=== PATIENT | male | born 1975 | race Caucasian/White ===

== ENCOUNTER 2020-04-24 17:12 | Emergency (ER) | payer MEDICAID ==
[~2020-04-24] VITALS: Ht 182.9 cm; Wt 72.6 kg
[~2020-04-24 17:12] MED LIST: LITHIUM CARBONATE PO; TRAM50TA2 PO
--- NOTE | 2020-04-24 17:17 | NUR ---
pt bib rescue co meth use, bizzarre behavior, hyper verbal and restless. on arrival, pt says that he needs something to calm him down, pt moving all extremeties restlessly.
[2020-04-24] MEDS ORDERED: LORAZEPAM 2 MG/1 ML VIAL IM ONE (17:30)
[2020-04-24] MEDS ORDERED: OLANZAPINE 10 MG VIAL IM ONE ×2 (17:30→17:44)
[2020-04-24] MEDS ORDERED: LORAZEPAM 2 MG/1 ML VIAL ONE (17:44)
[2020-04-24 17:57] LABS: *BLOOD, URINE NEGATIVE (NEGATIVE); *COLOR,URINE YELLOW (YELLOW); *KETONES,URINE 2+ (NEGATIVE); *UROBILINOGEN,URINE 0.2 E.U./dl (NORMAL); LEUKOCYTE ESTERASE ,URINE NEGATIVE (NEGATIVE); NITRITE, URINE NEGATIVE (NEGATIVE); PH,URINE 5.5 (5.0-8.0); UGLUCOSE NEGATIVE (NEGATIVE)
[2020-04-24 18:01] LABS: *BILIRUBIN,URIN 1+ (NEGATIVE)
[2020-04-24 18:11] LABS: BASOPHILS % (AUTO) 0.5 % (0.0-2.0); EOSINOPHILS % (AUTO) 0.2 % (0.0-7.0); HEMATOCRIT 35.4 % (36.7-47.1); HEMOGLOBIN 12.3 g/dL (12.5-16.3); LYMPHOCYTES # (AUTO) 0.8 K/uL (20.0-40.0); LYMPHOCYTES % (AUTO) 10.8 % (20.5-51.5); MEAN CORPUSCULAR HEMOGLOBIN 30.5 uug (23.8-33.4); MEAN CORPUSCULAR HGB CONC 35 g/dL (32.5-36.3); MEAN CORPUSCULAR VOLUME 88.2 fL (73.0-96.2); MONOCYTES # (AUTO) 0.5 K/uL (2.0-10.0); MONOCYTES % (AUTO) 6.5 % (0.0-11.0); NEUTROPHILS # (AUTO) 6.1 K/uL (1.8-8.9); PLATELET COUNT (AUTO) 274 K/uL (152-348); RED BLOOD CELL COUNT(AUTO) 4.01 MIL/uL (4.06-5.63); WHITE BLOOD COUNT (AUTO) 7.4 K/uL (3.6-10.2)
[2020-04-24 18:12] LABS: *AMPHETAMINE, URINE POSITIVE (NEGATIVE); *CANNABINOID, URINE NEGATIVE (NEGATIVE); *COCCAINE, URINE NEGATIVE (NEGATIVE); *OPIATE, URINE NEGATIVE (NEGATIVE); *PHENCYCLIDINE SCREEN,URINE NEGATIVE (NEGATIVE)
[2020-04-24 18:16] LABS: BACTERIA,URINE NONE SEEN /HPF (NONE SEEN); SQUAMOUS EPITHELIAL CELL,UR NONE SEEN /HPF (NONE SEEN)
[2020-04-24 18:17] LABS: *CLARITY,URINE CLEAR (CLEAR)
[2020-04-24 18:20] LABS: CARBON DIOXIDE 22 mmol/L (21-32); CHLORIDE 98 mmol/L (98-107); CREATININE 1.1 mg/dL (0.6-1.3); GLUCOSE 92 mg/dL (74-106); UREA NITROGEN, BLOOD 14 mg/dL (7-18)
[2020-04-24 18:29] LABS: ETHANOL < 3 MG/DL (0-0)
[2020-04-24 18:32] LABS: ALANINE AMINOTRANSFERASE 53 U/L (16-63); ALKALINE PHOSPHATASE 51 U/L (50-136); ASPARTATE AMINOTRANSFERASE 93 U/L (15-37); BILIRUBIN,DIRECT 0.4 mg/dL (0.0-0.2); BILIRUBIN,TOTAL 1.5 mg/dL (0.2-1.0); TOTAL PROTEIN, SERUM 7.1 g/dL (6.4-8.2)
--- NOTE | 2020-04-24 18:43 | NUR ---
pt resting, no sign of distress, on monitor, ra sat 97%, hr 98.
--- NOTE | 2020-04-24 21:30 | NUR ---
Pt resting comfortably in room. Pt arouses to voice, AxO x2-3. Pt able to move upper and lower extremities. VSS, no acute distress noted. Continue to monitor.
--- NOTE | 2020-04-25 03:40 | NUR ---
Pt easily arousable to voice, AxO x3-4, able to make needs known. Denies pain, SOB or n/v. No acute distress noted. Urinal at bedside. Urine output 500 cc at this time. VSS. Safety maintained. Continue to monitor.
--- NOTE | 2020-04-25 08:00 | NUR ---
called Jitendra, foster care social worker and left a message.
--- NOTE | 2020-04-25 08:23 | NUR ---
pt had 2 hospital tray with good apetite. pt says that he feels much better compared to yesterday.
--- NOTE | 2020-04-25 08:24 | NUR ---
new clothing and hygiene products provided for pt.
--- NOTE | 2020-04-25 08:40 | NUR ---
pt says that he has family support including brother and cousin who are willing to help if he decides to take care of his situation. pt says that he needs to clean up his acts and be responsible to his family.
[2020-04-25] MEDS ORDERED: ACETAMINOPHEN ES 500 MG TABLET PO ONE (09:00)
[2020-04-25] MEDS ORDERED: ACETAMINOPHEN ES 500 MG TABLET ONE (09:00)
--- NOTE | 2020-04-25 09:12 | NUR ---
pt decided to leave and not wait for social media marketer. community resource package provided for pt. pt walks in steady gait. pt was appreciative of the care recieved here. Addendum: 04/25/20 at 0918 by DON pt said that he wants to check into a rehab fascility at [place], where he has a better chance for recovery. a copy of labs provided for pt for medical clearance in case pt needs it.
--- NOTE | 2020-04-25 09:16 | NUR ---
Patient given written and verbal discharge instructions. Patient verbalizes understanding of instructions. Patient is ambulatory with steady gait. Refuses to wait for medical social worker. Patient given list of available shelters/community resources in surrounding area. pt axo x4. pt denies ant harm to self or others. pt has an intent and plan to get better.
[2020-04-25 09:17] VITALS: BP 109/67
== END 2020-04-25 09:20 | disposition home or self-care (01) ==
LOC: ER 17:15
DX: T43.621A Poisoning by amphetamines, accidental (unintentional), initial encounter (principal); G92 Toxic encephalopathy; F15.10 Other stimulant abuse, uncomplicated; Y92.89 Other specified places as the place of occurrence of the external cause; Z59.0 Homelessness; F31.9 Bipolar disorder, unspecified; Z79.899 Other long term (current) drug therapy; Z82.49 Family history of ischemic heart disease and other diseases of the circulatory system
CPT/HCPCS: 36415; 80048; 80076; 80307; 80320; 81001; 82550; 85025; 96372 ×2; 99284; J2060; A4663; A9150; G0480; J2358

== ENCOUNTER 2021-10-16 01:36 | Emergency (ER) | payer SELFPAY ==
[~2021-10-16] VITALS: Ht 182.9 cm; Wt 77.1 kg
--- NOTE | 2021-10-16 02:55 | NUR ---
DR: SHELL AT B/S FOR MSE ,EXAMINED PATIENT.
[2021-10-16] MEDS ORDERED: ACETAMINOPHEN/CODEINE 300-30 MG TABLET PO ONE (03:15)
[2021-10-16] MEDS ORDERED: VANCOMYCIN 1G/D5W 200 ML PIGGYBACK IV ONE (03:15)
[2021-10-16] MEDS ORDERED: VANCOMYCIN IV 200 ML ONE (03:18)
[2021-10-16 03:33] LABS: HEMATOCRIT 40.1 % (36.7-47.1); MEAN CORPUSCULAR HEMOGLOBIN 29.7 uug (23.8-33.4); PLATELET COUNT (AUTO) 243 K/uL (152-348)
--- NOTE | 2021-10-16 03:35 | NUR ---
PATIENT YELLING AND SCREAMING VERBALIZING AND COMPLAINING OF ITCHINESS SCRATHING THE BACK OF HIS NECK AND WANTS TO STOP THE ANTIBIOTIC HE DONT WANT IT AND HE WANTS TO SIGNED AMA [facility] .
--- NOTE | 2021-10-16 03:35 | NUR ---
REMOVED H/L .APPLIED GAUZE AND SECURE WITH TAPE .
[2021-10-16] MEDS ORDERED: SULF1TAB48 PO (03:39)
[2021-10-16 03:41] LABS: CREATININE 1.1 mg/dL (0.6-1.3)
[2021-10-16 03:47] LABS: BILIRUBIN,DIRECT 0.1 mg/dL (0.0-0.2); BILIRUBIN,TOTAL 0.7 mg/dL (0.2-1.0); TOTAL PROTEIN, SERUM 6.8 g/dL (6.4-8.2)
--- NOTE | 2021-10-16 03:47 | NUR ---
Patient does not wish to proceed with medical care recommended by Dr. GOFF MADE AWARE AND SPOKED WITH PATIENT AT B/S. Patient given information related to possible complications, up to and including , which could occur as a result of leaving the hospital at this time. Patient verbalizes understanding of risks involved due to leaving against medical advice. Patient has signed AMA form.
== END 2021-10-16 03:52 | disposition left against medical advice (07) ==
LOC: MERGE 01:36 → ER 01:36
DX: S81.812A Laceration without foreign body, left lower leg, initial encounter (principal); L08.9 Local infection of the skin and subcutaneous tissue, unspecified; W22.8XXA Striking against or struck by other objects, initial encounter; Y92.89 Other specified places as the place of occurrence of the external cause; Z59.00 Homelessness unspecified; F17.210 Nicotine dependence, cigarettes, uncomplicated; L29.9 Pruritus, unspecified; T36.8X5A Adverse effect of other systemic antibiotics, initial encounter; Y92.230 Patient room in hospital as the place of occurrence of the external cause; F31.9 Bipolar disorder, unspecified; J45.909 Unspecified asthma, uncomplicated
CPT/HCPCS: 99284; 96365; 80076; 80048; 85025; 36415; 73590; J3370; A4663

== ENCOUNTER 2022-01-20 02:06 | Emergency (ER) | payer MEDICAID ==
[~2022-01-20] VITALS: Ht 180.3 cm; Wt 72.1 kg
[~2022-01-20 02:06] MED LIST changes: +SULF1TAB48 PO
[2022-01-20] MEDS ORDERED: ALBU8.5H8 INH (02:28)
[2022-01-20 03:13] VITALS: BP 118/60
== END 2022-01-20 03:16 | disposition home or self-care (01) ==
LOC: ER 02:06
DX: J44.9 Chronic obstructive pulmonary disease, unspecified (principal); Z76.0 Encounter for issue of repeat prescription; F15.10 Other stimulant abuse, uncomplicated; F10.10 Alcohol abuse, uncomplicated; S61.411D Laceration without foreign body of right hand, subsequent encounter; X58.XXXD Exposure to other specified factors, subsequent encounter; F17.210 Nicotine dependence, cigarettes, uncomplicated; Z59.00 Homelessness unspecified
CPT/HCPCS: A4663

== ENCOUNTER 2022-01-22 20:37 | Emergency (ER) | payer MEDICAID ==
[~2022-01-22] VITALS: Ht 180.3 cm; Wt 72.6 kg
[~2022-01-22 20:37] MED LIST changes: +ALBU8.5H8 INH
[2022-01-22] MEDS ORDERED: HYDROCODONE/APAP 10-325 MG TABLET PO ONE (21:30)
[2022-01-22] MEDS ORDERED: LORAZEPAM 0.5 MG TABLET PO ONE (21:30)
[2022-01-22] MEDS ORDERED: OLANZAPINE 5 MG TABLET PO ONE (21:30)
[2022-01-22 21:33] LABS: HEMATOCRIT 37.4 % (36.7-47.1); MEAN CORPUSCULAR HEMOGLOBIN 29.7 uug (23.8-33.4); MEAN CORPUSCULAR VOLUME 86.1 fL (73.0-96.2); PLATELET COUNT (AUTO) 364 K/uL (152-348)
[2022-01-22] MEDS ORDERED: OLANZAPINE 5 MG TABLET ONE (21:33)
[2022-01-22] MEDS ORDERED: HYDROCODONE/APAP 10-325 MG TABLET ONE (21:33)
[2022-01-22] MEDS ORDERED: LORAZEPAM 0.5 MG TABLET ONE (21:34)
[2022-01-22 21:43] LABS: CARBON DIOXIDE 27 mmol/L (21-32); CHLORIDE 100 mmol/L (98-107); CREATININE 1.6 mg/dL (0.6-1.3); GLUCOSE 158 mg/dL (74-106); POTASSIUM 3.7 mmol/L (3.5-5.1); UREA NITROGEN, BLOOD 23 mg/dL (7-18)
[2022-01-22 21:49] LABS: ALANINE AMINOTRANSFERASE 38 U/L (16-63); ALKALINE PHOSPHATASE 85 U/L (50-136); ASPARTATE AMINOTRANSFERASE 34 U/L (15-37); BILIRUBIN,DIRECT 0.1 mg/dL (0.0-0.2); BILIRUBIN,TOTAL 0.4 mg/dL (0.2-1.0); TOTAL PROTEIN, SERUM 7.2 g/dL (6.4-8.2)
[2022-01-22 21:54] LABS: ETHANOL < 3 MG/DL (0-0)
[2022-01-22 22:07] LABS: ACETAMINOPHEN < 2.0 ug/mL (10-30)
[2022-01-22 22:41] LABS: *CLARITY,URINE CLEAR (CLEAR); *COLOR,URINE YELLOW (YELLOW); UGLUCOSE NEGATIVE (NEGATIVE)
[2022-01-22 22:42] LABS: *BILIRUBIN,URIN NEGATIVE (NEGATIVE); *BLOOD, URINE NEGATIVE (NEGATIVE); *KETONES,URINE NEGATIVE (NEGATIVE); *UROBILINOGEN,URINE 0.2 E.U./dl (NORMAL); LEUKOCYTE ESTERASE ,URINE NEGATIVE (NEGATIVE); NITRITE, URINE NEGATIVE (NEGATIVE)
[2022-01-22 22:43] LABS: *AMPHETAMINE, URINE POSITIVE (NEGATIVE); *CANNABINOID, URINE NEGATIVE (NEGATIVE); *COCCAINE, URINE NEGATIVE (NEGATIVE); *OPIATE, URINE NEGATIVE (NEGATIVE); *PHENCYCLIDINE SCREEN,URINE NEGATIVE (NEGATIVE)
--- NOTE | 2022-01-22 22:50 | NUR ---
Called [facility] , spoke to Art who request to fax facesheet and clinicals to
[2022-01-22] MEDS ORDERED: CEPH500T PO (23:01)
[2022-01-22] MEDS ORDERED: CEFTRIAXONE 1 G VIAL ONE (23:07)
[2022-01-22] MEDS ORDERED: CEFTRIAXONE 1 G VIAL IM ONE (23:15)
--- NOTE | 2022-01-23 00:53 | NUR ---
Art from [facility] called back with transfer info. Patient is accepted to [facility]. Accepting MD is Dr Thornton. Call for report is .
--- NOTE | 2022-01-23 00:57 | NUR ---
[facility] ETA for knot picker cloth is 15mins.
[2022-01-23 01:32] VITALS: BP 134/76
--- NOTE | 2022-01-23 01:49 | NUR ---
Patient was transfered to [facility] via [facility] ambulance.
== END 2022-01-23 01:50 ==
LOC: ER 20:42
DX: S60.511A Abrasion of right hand, initial encounter (principal); X58.XXXA Exposure to other specified factors, initial encounter; J44.9 Chronic obstructive pulmonary disease, unspecified; Y92.89 Other specified places as the place of occurrence of the external cause; Z59.00 Homelessness unspecified; F17.210 Nicotine dependence, cigarettes, uncomplicated; M79.642 Pain in left hand; M79.641 Pain in right hand; Z20.822 Contact with and (suspected) exposure to COVID-19
CPT/HCPCS: 80076; 80048; 81003; 85025; 87426; 36415; 73130 ×2; 99285; 96372; 80299; 80320; 80307; J0696; A4663; G0480

== ENCOUNTER 2022-05-03 15:44 | Emergency (ER) | payer MEDICAID, OTHER ==
[~2022-05-03] VITALS: Ht 182.9 cm; Wt 72.6 kg
[~2022-05-03 15:44] MED LIST changes: +CEPH500T PO
[2022-05-03] MEDS ORDERED: LORAZEPAM 0.5 MG TABLET PO ONE (16:15)
--- NOTE | 2022-05-03 16:16 | NUR ---
Oral Ativan administered orally as prescribed.
[2022-05-03] MEDS ORDERED: LORAZEPAM 1 MG TABLET ONE (16:23)
[2022-05-03 16:28] LABS: HEMATOCRIT 37.1 % (36.7-47.1); PLATELET COUNT (AUTO) 267 K/uL (152-348)
--- NOTE | 2022-05-03 16:38 | NUR ---
Self Discharge - security escorted: 1) Became verbally abusive 2) Would not let nurses: (i) insert iv acess for iv Ativan (ii) take lbs (iii) take Covid - 19 test - eventually did with a lot of insult and aggression 3) Asked for food - provided and still verbally abusive threatening, and invading nurses space. 4) Manager Policy involved - offered to call test case developer as per patient's request - when asked for the contact number - patient blew-up, physically initimidating 5) Security called and escorted patient safely out. 6) Labs & covid test done - had lunch and left.
[2022-05-03 16:45] VITALS: BP 141/65
[2022-05-03 16:48] LABS: CARBON DIOXIDE 25 mmol/L (21-32); CHLORIDE 100 mmol/L (98-107); GLUCOSE 78 mg/dL (74-106); POTASSIUM 4.6 mmol/L (3.5-5.1); UREA NITROGEN, BLOOD 15 mg/dL (7-18)
[2022-05-03 17:01] LABS: ALANINE AMINOTRANSFERASE 48 U/L (16-63); ALKALINE PHOSPHATASE 61 U/L (50-136); ASPARTATE AMINOTRANSFERASE 60 U/L (15-37); BILIRUBIN,DIRECT 0.3 mg/dL (0.0-0.2); BILIRUBIN,TOTAL 1.4 mg/dL (0.2-1.0); TOTAL PROTEIN, SERUM 7.3 g/dL (6.4-8.2)
[2022-05-03 17:02] LABS: ACETAMINOPHEN < 10.0 ug/mL (10-30)
[2022-05-03 17:12] LABS: ETHANOL < 3 MG/DL (0-0)
== END 2022-05-03 16:46 | disposition left against medical advice (07) ==
LOC: ER 15:44
DX: F14.10 Cocaine abuse, uncomplicated (principal); F31.9 Bipolar disorder, unspecified; Z59.00 Homelessness unspecified; J44.9 Chronic obstructive pulmonary disease, unspecified; F17.210 Nicotine dependence, cigarettes, uncomplicated; Z20.822 Contact with and (suspected) exposure to COVID-19
CPT/HCPCS: 36415; 70030-TC; 85025; A4663; G0480

== ENCOUNTER 2022-07-06 00:37 | Emergency (ER) | payer OTHER ==
[~2022-07-06] VITALS: Ht 182.9 cm; Wt 74.4 kg
--- NOTE | 2022-07-06 00:56 | NUR ---
attempt to Triage patient. Patient left without being seen
[2022-07-06] MEDS ORDERED: LORAZEPAM 0.5 MG TABLET PO ONE (01:15)
[2022-07-06] MEDS ORDERED: OXYCODONE/APAP 5-325 MG TABLET PO ONE (01:15)
[2022-07-06] MEDS ORDERED: OXYCODONE/APAP 5-325 MG TABLET ONE (01:19)
[2022-07-06] MEDS ORDERED: LORAZEPAM 1 MG TABLET ONE (01:19)
--- NOTE | 2022-07-06 01:41 | NUR ---
Patient is agitated, yelling at staff. Refusing to get discharge. asking for prescriptions
--- NOTE | 2022-07-06 01:47 | NUR ---
Patient given written and verbal discharge instructions. Patient verbalizes understanding of instructions. Patient is ambulatory with steady gait. Refuses offer of half-way placement. Patient given list of available shelters in surrounding area.
[2022-07-06 01:49] VITALS: BP 118/77
== END 2022-07-06 01:50 | disposition home or self-care (01) ==
LOC: ER 00:49
DX: M54.50 Low back pain, unspecified (principal); G89.4 Chronic pain syndrome; F15.10 Other stimulant abuse, uncomplicated; J44.9 Chronic obstructive pulmonary disease, unspecified; F17.210 Nicotine dependence, cigarettes, uncomplicated; Z71.6 Tobacco abuse counseling; Z59.00 Homelessness unspecified; Z79.899 Other long term (current) drug therapy
CPT/HCPCS: 72100; A4663

== ENCOUNTER 2023-04-12 22:28 | Emergency (ER) | payer MEDICAID, OTHER ==
[~2023-04-12] VITALS: Ht 182.9 cm; Wt 68.0 kg
[2023-04-12] MEDS ORDERED: KETOROLAC TROMETHAMINE 30 MG INJ ONE (22:58)
[2023-04-12 23:01] LABS: BASOPHILS # (AUTO) 0.1 K/UL (0.0-0.2); BASOPHILS % (AUTO) 1.3 % (0.0-2.0); EOSINOPHILS # (AUTO) 0.2 K/uL (0.0-0.7); EOSINOPHILS % (AUTO) 2.6 % (0.0-7.0); HEMATOCRIT 37.6 % (36.7-47.1); HEMOGLOBIN 13.2 g/dL (12.5-16.3); LYMPHOCYTES # (AUTO) 2.2 K/uL (0.8-4.8); LYMPHOCYTES % (AUTO) 32.1 % (20.5-51.5); MEAN CORPUSCULAR HEMOGLOBIN 29.9 uug (23.8-33.4); MEAN CORPUSCULAR HGB CONC 35 g/dL (32.5-36.3); MEAN CORPUSCULAR VOLUME 85.5 fL (73.0-96.2); MONOCYTES # (AUTO) 0.5 K/uL (0.1-1.30); MONOCYTES % (AUTO) 6.7 % (0.0-11.0); NEUTROPHILS # (AUTO) 3.9 K/uL (1.8-8.9); NEUTROPHILS % (AUTO) 57.3 % (38.5-71.5); PLATELET COUNT (AUTO) 300 K/uL (152-348); RED CELL DISTRIBUTION WIDTH 14.1 % (12.1-16.2); WHITE BLOOD COUNT (AUTO) 6.8 K/uL (3.6-10.2)
[2023-04-12] MEDS: KETOROLAC TROMETHAMINE 30 MG INJ IM ONE (23:02)
[2023-04-12 23:22] LABS: DIFFERENTIAL COMMENT 1
[2023-04-12 23:27] LABS: CARBON DIOXIDE 26 mmol/L (21-32); CHLORIDE 104 mmol/L (98-107); GLUCOSE 96 mg/dL (74-106); POTASSIUM 4.1 mmol/L (3.5-5.1); SODIUM SERUM 138 mmol/L (136-145); UREA NITROGEN, BLOOD 30 mg/dL (7-18)
[2023-04-12 23:33] LABS: ALANINE AMINOTRANSFERASE 49 U/L (16-63); ALBUMIN 3.5 g/dL (3.4-5.0); ALKALINE PHOSPHATASE 76 U/L (50-136); ASPARTATE AMINOTRANSFERASE 51 U/L (15-37); BILIRUBIN,DIRECT 0.2 mg/dL (0.0-0.2); BILIRUBIN,TOTAL 0.8 mg/dL (0.2-1.0); TOTAL PROTEIN, SERUM 6.9 g/dL (6.4-8.2)
[2023-04-12 23:37] LABS: ETHANOL < 3 MG/DL (0-10)
[2023-04-12 23:41] LABS: CALCIUM 8.9 mg/dL (8.5-10.1)
[2023-04-13 00:24] VITALS: BP 133/90; O2SAT 100
== END 2023-04-13 00:25 | disposition home or self-care (01) ==
LOC: ER 22:30
DX: M79.672 Pain in left foot (principal); M79.671 Pain in right foot; J44.9 Chronic obstructive pulmonary disease, unspecified; F20.9 Schizophrenia, unspecified; F31.9 Bipolar disorder, unspecified; F17.200 Nicotine dependence, unspecified, uncomplicated; Z59.00 Homelessness unspecified
CPT/HCPCS: 80076; 80048; 85025; 36415; 99283; 96372; 80320; J1885; A4606; A4663; G0480

== ENCOUNTER 2024-02-29 23:00 | Emergency (ER) | payer MEDICAID, OTHER ==
[~2024-02-29] VITALS: Ht 180.3 cm; Wt 73.5 kg
[2024-02-29] MEDS ORDERED: ACETAMINOPHEN 500 MG TABLET ONE (23:35)
[2024-02-29] MEDS: ACETAMINOPHEN 500 MG TABLET PO ONE (23:41)
[2024-03-01] MEDS ORDERED: IBUP-1955 PO (00:19)
[2024-03-01] MEDS ORDERED: ACET-73 PO (00:19)
[2024-03-01 07:03] VITALS: BP 122/72; TEMP 98.5; O2SAT 98
== END 2024-03-01 07:04 | disposition home or self-care (01) ==
LOC: ER 23:00
DX: B34.9 Viral infection, unspecified (principal); F17.200 Nicotine dependence, unspecified, uncomplicated; Z20.822 Contact with and (suspected) exposure to COVID-19; Z59.00 Homelessness unspecified; Z88.7 Allergy status to serum and vaccine
CPT/HCPCS: 71045; A4606; A4663; A9150

== ENCOUNTER 2024-03-08 02:43 | Emergency (ER) | payer OTHER ==
[~2024-03-08] VITALS: Ht 170.2 cm; Wt 74.8 kg
[~2024-03-08 02:43] MED LIST changes: +ACET-73 PO; -ALBU8.5H8 INH; -CEPH500T PO; +IBUP-1955 PO; -LITHIUM CARBONATE PO; -SULF1TAB48 PO; -TRAM50TA2 PO
[2024-03-08 03:36] LABS: BASOPHILS # (AUTO) 0.1 K/UL (0.0-0.2); BASOPHILS % (AUTO) 0.6 % (0.0-2.0); EOSINOPHILS # (AUTO) 0.1 K/uL (0.0-0.7); EOSINOPHILS % (AUTO) 1.2 % (0.0-7.0); HEMATOCRIT 35.8 % (36.7-47.1); HEMOGLOBIN 12.3 g/dL (12.5-16.3); LYMPHOCYTES # (AUTO) 1.1 K/uL (0.8-4.8); LYMPHOCYTES % (AUTO) 12.5 % (20.5-51.5); MEAN CORPUSCULAR HGB CONC 35 g/dL (32.5-36.3); MEAN CORPUSCULAR VOLUME 84.3 fL (73.0-96.2); MONOCYTES # (AUTO) 0.6 K/uL (0.1-1.30); MONOCYTES % (AUTO) 7.2 % (0.0-11.0); NEUTROPHILS # (AUTO) 6.8 K/uL (1.8-8.9); NEUTROPHILS % (AUTO) 78.5 % (38.5-71.5); PLATELET COUNT (AUTO) 372 K/uL (152-348); RED BLOOD CELL COUNT(AUTO) 4.24 MIL/uL (4.06-5.63); RED CELL DISTRIBUTION WIDTH 14.1 % (12.1-16.2); WHITE BLOOD COUNT (AUTO) 8.6 K/uL (3.6-10.2)
[2024-03-08 03:39] LABS: DIFFERENTIAL COMMENT 1
[2024-03-08 03:48] LABS: *BILIRUBIN,URIN NEGATIVE (NEGATIVE); *BLOOD, URINE NEGATIVE (NEGATIVE); *CLARITY,URINE CLEAR (CLEAR); *COLOR,URINE YELLOW (YELLOW); *KETONES,URINE NEGATIVE (NEGATIVE); *PROTEIN,URINE NEGATIVE (NEGATIVE); *UROBILINOGEN,URINE 0.2 E.U./dl (NORMAL); LEUKOCYTE ESTERASE ,URINE NEGATIVE (NEGATIVE); NITRITE, URINE NEGATIVE (NEGATIVE); UGLUCOSE NEGATIVE (NEGATIVE)
[2024-03-08 03:56] LABS: *AMPHETAMINE, URINE NEGATIVE (NEGATIVE); *BARBITURATE, URINE NEGATIVE (NEGATIVE); *BENZODIAZEPINE, URINE NEGATIVE (NEGATIVE); *CANNABINOID, URINE NEGATIVE (NEGATIVE); *COCCAINE, URINE NEGATIVE (NEGATIVE); *OPIATE, URINE NEGATIVE (NEGATIVE); *PHENCYCLIDINE SCREEN,URINE NEGATIVE (NEGATIVE); FENTANYL, URINE NEGATIVE (NEGATIVE)
[2024-03-08 03:56] LABS: ALANINE AMINOTRANSFERASE 29 U/L (16-63); ALKALINE PHOSPHATASE 99 U/L (50-136); ASPARTATE AMINOTRANSFERASE 22 U/L (15-37); BILIRUBIN,DIRECT 0.1 mg/dL (0.0-0.2); BILIRUBIN,TOTAL 0.4 mg/dL (0.2-1.0); CARBON DIOXIDE 25 mmol/L (21-32); CHLORIDE 104 mmol/L (98-107); CREATININE 0.8 mg/dL (0.6-1.3); GLUCOSE 123 mg/dL (74-106); POTASSIUM 4.1 mmol/L (3.5-5.1); SODIUM SERUM 139 mmol/L (136-145); TOTAL PROTEIN, SERUM 6.6 g/dL (6.4-8.2); UREA NITROGEN, BLOOD 29 mg/dL (7-18)
[2024-03-08 03:57] LABS: ACETAMINOPHEN < 10.0 ug/mL (10-30)
[2024-03-08 04:10] LABS: ETHANOL < 3 MG/DL (0-10)
[2024-03-08 04:15] VITALS: TEMP 97.8
[2024-03-08] MEDS: ACETAMINOPHEN 500 MG TABLET PO ONE (04:15)
[2024-03-08] MEDS ORDERED: ACETAMINOPHEN 500 MG TABLET ONE (04:18)
[2024-03-08] MEDS ORDERED: LITH600C PO (10:54)
[2024-03-08 12:50] VITALS: BP 133/93; O2SAT 97
== END 2024-03-08 12:51 | disposition home or self-care (01) ==
LOC: ER 02:50
DX: Z00.8 Encounter for other general examination (principal); E86.0 Dehydration; R44.0 Auditory hallucinations; F15.23 Other stimulant dependence with withdrawal; F17.200 Nicotine dependence, unspecified, uncomplicated; F31.9 Bipolar disorder, unspecified; Z76.0 Encounter for issue of repeat prescription; Z20.822 Contact with and (suspected) exposure to COVID-19; Z79.899 Other long term (current) drug therapy; Z59.00 Homelessness unspecified; Z88.7 Allergy status to serum and vaccine
CPT/HCPCS: 36415; 85025; A4606; A4663; A9150; G0480